=== PATIENT | female | born 1955 | race Caucasian/White ===

== ENCOUNTER 2017-07-28 07:17 | Day surgery (SDC) | payer OTHER ==
[2016-05-06 08:23] VITALS: BMI 26.3
[2017-07-28] MEDS ORDERED: Lactated Ringer's 1,000 ML IV ONE (07:45)
[2017-07-28] MEDS ORDERED: Lidocaine 2% MPF (5 ml) Inj ONE (07:57)
[2017-07-28] MEDS ORDERED: Propofol 10 mg/ml Inj (20 ML) ONE (07:57)
[2017-07-28 09:42] VITALS: TEMP 97
[2017-07-28 10:02] VITALS: BP 110/72; PULSE 73; RESP 14; O2SAT 99
== END 2017-07-28 10:02 | disposition home or self-care (01) ==
LOC: H.ENDO 07:17
PROVIDERS: ATTEND Internal Medicine Gastroenterology
DX: Z12.11 Encounter for screening for malignant neoplasm of colon (principal); K57.30 Diverticulosis of large intestine without perforation or abscess without bleeding; K64.8 Other hemorrhoids; K20.9 Esophagitis, unspecified; K22.8 Other specified diseases of esophagus; K29.70 Gastritis, unspecified, without bleeding
CPT/HCPCS: 43239; 45378; 88305; J2704; J7120